=== PATIENT | female | born 2000 | race Caucasian/White ===

== ENCOUNTER 2024-11-09 01:36 | Emergency (ER) | payer SELFPAY ==
[~2024-11-09] VITALS: Ht 167.6 cm; Wt 73.0 kg
[2024-11-09 01:38] VITALS: TEMP 36.4; O2SAT 99
[2024-11-09] MEDS: ONDANSETRON HCL 4MG/2ML INJ IV ONE (02:59)
[2024-11-09 04:24] VITALS: BP 91/49; PULSE 74; RESP 13; O2SAT 99
== END 2024-11-09 04:37 | disposition home or self-care (01) ==
LOC: ER 01:36
DX: T51.0X1A Toxic effect of ethanol, accidental (unintentional), initial encounter (principal); F41.9 Anxiety disorder, unspecified; Z98.890 Other specified postprocedural states; Y92.89 Other specified places as the place of occurrence of the external cause
CPT/HCPCS: 96374; 99284; J2405; Z7610